=== PATIENT | female | born 1955 | race Caucasian/White ===

== ENCOUNTER → 2020-02-11 14:17 | Outpatient (CLI) | payer OTHER, SELFPAY ==
--- NOTE | 2020-02-11 | DI.RAD.S_ITS ---
PROCEDURE: XR CERVICAL SPINE 2V OR 3V INDICATIONS: NECK PAIN TECHNIQUE: 3 view(s) of the cervical spine were acquired. COMPARISON: None. FINDINGS: Bones: No fractures or dislocations to the T1 level. The lateral masses of C1 appear intact on the odontoid view. No suspicious bony lesions. Loss of lordosis which could be related to muscle spasm, rigidity or simply positional. Multilevel disc degeneration, most notably and moderate at the C5-C6 and C6-C7 levels. Mild multilevel facet joint arthropathy and uncovertebral hypertrophy. Soft tissues: No prevertebral soft tissue swelling. IMPRESSION: Loss of lordosis and multilevel spondylosis. Dictated by: Richard Lawson [facility] Interpreted: Derek Sandoval MD on 02/11/2020 at 16:36 Approved by: Derek Sandoval M.D. on 02/11/2020 at 17:13
== END ==
PROVIDERS: PCP Internal Medicine; Referring Provider Internal Medicine; Visit Provider Internal Medicine
DX: Z13.820 Encounter for screening for osteoporosis (principal); M54.2 Cervicalgia; M47.812 Spondylosis without myelopathy or radiculopathy, cervical region; Z87.891 Personal history of nicotine dependence
CPT/HCPCS: 72040; 77080

== ENCOUNTER → 2020-02-28 15:14 | Outpatient (CLI) | payer OTHER, SELFPAY ==
--- NOTE | 2020-02-28 15:15 | DI.RAD.S_ITS ---
PROCEDURE: XR WRIST RT MIN 3V INDICATIONS: wrist pain, FOOSH, medal wrist pain TECHNIQUE: 4 views of the wrist were acquired. COMPARISON: None. FINDINGS: Bones: No fracture. Scattered degenerative subchondral sclerosis and spurring. Soft tissues: No suspicious soft tissue calcifications. IMPRESSION: No fracture. If the patient's symptoms do not improve recommend followup radiographs in 10 days to assess for healing sclerosis/occult injury. Dictated by: Joseph Rios M.D. on 02/28/2020 at 15:42 Approved by: Joseph Rios M.D. on 02/28/2020 at 15:47
--- NOTE | 2020-02-28 15:15 | DI.RAD.S_ITS ---
PROCEDURE: XR FINGER RT MIN 2V INDICATIONS: wrist pain, FOOSH, medial wrist pain TECHNIQUE: AP hand, 2 views of the right finger(s) acquired. COMPARISON: None. FINDINGS: Bones: No fracture. Scattered degenerative subchondral sclerosis and spurring. Chronic corticated ossicle at the PIP joint of the right little finger. Soft tissues: No suspicious soft tissue calcifications. IMPRESSION: Degenerative changes. If the patient's pain or other symptoms persist, consider further evaluation with MRI Dictated by: Joseph Rios M.D. on 02/28/2020 at 15:40 Approved by: Joseph Rios M.D. on 02/28/2020 at 15:42
== END ==
PROVIDERS: PCP Internal Medicine; Referring Provider Nurse Practitioner; Visit Provider Nurse Practitioner
DX: M25.531 Pain in right wrist (principal)
CPT/HCPCS: 73110; 73140

== ENCOUNTER → 2020-07-17 12:09 | Outpatient (CLI) | payer OTHER, SELFPAY ==
--- NOTE | 2020-07-17 | DI.MRI.S_ITS ---
PROCEDURE: MR BRAIN (IAC) WWO CON INDICATIONS: Sensorineural hearing loss, bilateral TECHNIQUE: Noncontrast sagittal T1 spin echo, axial FLAIR, axial gradient echo, axial diffusion and ADC through the brain. Axial thin-slice 3D CISS, coronal TruFISP, axial T1 spin echo with fat saturation through the internal auditory canals. After the administration of contrast, thin slice axial and coronal T1 spin echo with fat saturation through the internal auditory canals, and axial T1 spin echo with fat saturation through the brain. COMPARISON: None. FINDINGS: Image quality: Excellent. Cerebellopontine angles: There is an intensely enhancing mass seen involving the right internal auditory canal, which extends into the right cerebellopontine angle cistern that measures 2 x 1.5 by 1.4 cm. No additional masses can be seen involving the internal auditory canals or the cerebellopontine angle cisterns. CSF spaces: Ventricles are normal in size and shape. No extra-axial fluid collections. Basal cisterns are patent. Brain: No intracranial bleeds or mass effects. Aguilar-white matter interface is intact. No abnormal intracranial enhancement. Diffusion weighted images demonstrate no acute ischemic insults. Brainstem appears normal. Normal intravascular flow voids are present. Brain parenchymal volume loss is seen. Chronic small vessel ischemic changes are seen. Skull and face: Calvarial marrow signal is normal. Orbits appear normal. Sinuses: Sinuses and mastoids are clear. IMPRESSION: There is a 2 cm intensely enhancing mass involving the right internal auditory canal, which extends into the right cerebellopontine angle cistern. 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 Dictated by: Coy Kwan M.D. on 07/17/2020 at 13:37 Approved by: Coy Kwan M.D. on 07/17/2020 at 13:39
== END ==
PROVIDERS: PCP Internal Medicine; Referring Provider Internal Medicine; Visit Provider Internal Medicine
DX: H90.3 Sensorineural hearing loss, bilateral (principal); D33.3 Benign neoplasm of cranial nerves
CPT/HCPCS: 70553

== ENCOUNTER → 2020-12-13 11:07 | Outpatient (CLI) | payer OTHER, SELFPAY ==
--- NOTE | 2020-12-13 | DI.MG.S_ITS ---
BILATERAL DIGITAL SCREENING MAMMOGRAM 3D/2D WITH CAD: 12/13/2020 CLINICAL: Routine screening. Comparison is made to exams dated: 10/19/2019 mammogram, 09/14/2018 mammogram, 06/19/2017 mammogram, and 12/01/2013 mammogram - outside. There are scattered fibroglandular elements in both breasts. Current study was also evaluated with a Computer Aided Detection (CAD) system. There are benign calcifications in both breasts. No significant masses, calcifications, or other findings are seen in either breast. There has been no significant interval change. IMPRESSION: BENIGN There is no mammographic evidence of malignancy. A 1 year screening mammogram is recommended. This exam was interpreted at Station ID: [id number]. NOTE: For mammograms, a report in lay terms will be sent to the patient. Approximately 15% of breast malignancies will not be visualized mammographically. In the management of a palpable breast mass, a negative mammogram must not discourage biopsy of a clinically suspicious lesion. Electronically Signed By: Kushal solis/david:12/13/2020 13:43:01 letter sent: Normal Exam ACR BI-RADS Category 2: Benign Finding(s) 3342F
== END ==
PROVIDERS: PCP Student in an Organized Health Care Education/Training Program; Referring Provider Internal Medicine; Visit Provider Internal Medicine
DX: Z12.31 Encounter for screening mammogram for malignant neoplasm of breast (principal)
CPT/HCPCS: 77063; 77067

== ENCOUNTER → 2021-12-14 10:50 | Outpatient (CLI) | payer OTHER, SELFPAY ==
--- NOTE | 2021-12-14 10:53 | DI.MG.S_ITS ---
BILATERAL DIGITAL SCREENING MAMMOGRAM 3D/2D WITH CAD: 12/14/2021 CLINICAL: Routine screening. Comparison is made to exams dated: 12/13/2020 mammogram - [facility], 10/19/2019 mammogram, and 09/14/2018 mammogram - outside. There are scattered areas of fibroglandular density in both breasts (category b / 25%-50% glandular tissue). Current study was also evaluated with a Computer Aided Detection (CAD) system. There are benign calcifications in both breasts. No significant masses, calcifications, or other findings are seen in either breast. There has been no significant interval change. IMPRESSION: BENIGN There is no mammographic evidence of malignancy. A 1 year screening mammogram is recommended. Based on the Tyrer Cuzick model (a risk assessment model) the patient's lifetime risk is 8.5% and her 10 year risk is 3.9%. According to the ACR, ACS, and NCCN guidelines, an annual breast MRI exam along with mammogram is recommended if the patient's lifetime risk is 20% or greater. This exam was interpreted at Station ID: [id number]. NOTE: For mammograms, a report in lay terms will be sent to the patient. Approximately 15% of breast malignancies will not be visualized mammographically. In the management of a palpable breast mass, a negative mammogram must not discourage biopsy of a clinically suspicious lesion. Electronically Signed By: Robbin flores/david:12/14/2021 13:14:24 letter sent: Normal Exam ACR BI-RADS Category 2: Benign Finding(s) 3342F
== END ==
PROVIDERS: PCP Student in an Organized Health Care Education/Training Program; Referring Provider Student in an Organized Health Care Education/Training Program; Visit Provider Student in an Organized Health Care Education/Training Program
DX: Z12.31 Encounter for screening mammogram for malignant neoplasm of breast (principal)
CPT/HCPCS: 77063; 77067

== ENCOUNTER 2022-06-18 13:39 | Emergency (ER) | payer OTHER, SELFPAY ==
[2022-06-18 13:45] VITALS: BP 130/59; PULSE 69; RESP 18; TEMP 36.3; O2SAT 99; BMI 25.0
--- NOTE | 2022-06-18 13:58 | DI.RAD.S_ITS ---
PROCEDURE: XR CHEST 1V INDICATIONS: chest pain TECHNIQUE: One view of the chest was acquired. COMPARISON: [facility], CT, CT HEAD/BRAIN WO CON, 06/18/2022, 14:11. FINDINGS: Surgical changes and devices: None. Lungs and pleura: Lungs are clear. No pleural effusions or pneumothorax. Mediastinum: Mediastinal contours appear normal. Heart size is normal. Bones and chest wall: No suspicious bony lesions. Overlying soft tissues appear unremarkable. IMPRESSION: Normal portable chest for age. Dictated by: Coy Kwan M.D. on 06/18/2022 at 13:35 Approved by: Coy Kwan M.D. on 06/18/2022 at 13:35
--- NOTE | 2022-06-18 13:59 | DI.CT.S_ITS ---
PROCEDURE: CT HEAD/BRAIN WO CON INDICATIONS: dizzy x 2 days. TECHNIQUE: Noncontrast 4.5 mm thick angled axial sections acquired from the foramen magnum to the vertex, with coronal and sagittal reformats. For radiation dose reduction, the following was used: automated exposure control, adjustment of mA and/or kV according to patient size. COMPARISON: [facility], CR, XR CHEST 1V, 06/18/2022, 14:05. Brain MRI, 07/17/2020. FINDINGS: Image quality: Excellent. CSF spaces: Basal cisterns are patent. No extra-axial fluid collections. The ventricles are symmetric in size and shape. Brain: No intracranial bleeds or masses. There is cerebral volume loss for age, with resultant ventricular and sulcal prominence. There are periventricular and deep white matter chronic small vessel ischemic changes. There is intracranial internal carotid artery atherosclerosis. Skull and face: Calvarium and visualized facial bones appear intact, without suspicious lesions. Sinuses: Visualized sinuses and mastoids are clear. IMPRESSION: Unremarkable noncontrast head CT for age, without a cause of the patient's presenting history identified. Dictated by: Coy Kwan M.D. on 06/18/2022 at 13:29 Approved by: Coy Kwan M.D. on 06/18/2022 at 13:29
[2022-06-18 14:22] LABS: Add Manual Diff / Slide Review NO; Basophils Absolute Auto 100 /uL (0-100); Eosinophils Absolute Auto 100 /uL (0-450); Eosinophils Percent Auto 0.8 % (2-4); Hematocrit 41.9 % (36-46); Hemoglobin 13.8 g/dL (12.0-16.0); Lymphocytes Absolute Auto 1800 /uL (1100-4500); Lymphocytes Percent Auto 27.4 % (25-40); Mean Corpuscular Hemoglobin 27.2 PG (26-34); Mean Corpuscular Volume 82.3 fL (80-100); Monocytes Absolute Auto 600 /uL (0-900); Monocytes Percent Auto 8.8 % (3-14); Neutrophils Absolute Auto 4100 /uL (1500-7000); Platelet Count 293 X10^3/uL (150-400); Red Blood Cell Count 5.09 X10^6/uL (4.0-5.2); Red Cell Distribution Width 14.3 % (11.6-14.8); White Blood Cell Count 6.6 X10^3/uL (4.5-11.0)
[2022-06-18] MEDS: SODIUM CHLORIDE 0.9% 1,000 ML 1000 ML IV (14:22)
[2022-06-18] MEDS: MECLIZINE HCL 12.5 MG TABLET 50 MG PO (14:22)
[2022-06-18] MEDS: diazePAM 10 MG/2 ML SYRINGE 2 MG IV (14:23)
[2022-06-18 14:29] LABS: Prothrombin Time 11.4 SECONDS (10.1-12.7)
[2022-06-18 14:31] LABS: Alanine Aminotransferase 22 IU/L (<35); Albumin 4.3 g/dL (3.5-5.0); Albumin Globulin Ratio 1.2 (1.0-2.8); Alkaline Phosphatase 67 U/L (38-126); Aspartate Aminotransferase 26 IU/L (14-36); BUN Creatinine Ratio 22.9 (6-22); Bilirubin Total 0.4 mg/dL (0.2-1.3); Blood Urea Nitrogen 16 mg/dL (7-17); Calcium 9.2 mg/dL (8.4-10.2); Carbon Dioxide 29 mmol/L (22-32); Chloride 100 mmol/L (98-107); Creatine Kinase 62 U/L (30-135); Estimated Glomerular Filt Rate > 60 mL/min (>60); Globulin 3.5 g/dL (1.7-4.1); Glucose 110 mg/dL (80-110); HEMOLYSIS < 15 (0-50); Lipase 176 U/L (23-300); Magnesium 2.2 mg/dL (1.6-2.3); PTT Partial Thromboplastin Tim 33 SECONDS (26-36); Potassium 3.9 mmol/L (3.4-5.1); Sodium 137 mmol/L (137-145); Total Protein 7.8 g/dL (6.3-8.2)
[2022-06-18 14:43] LABS: Troponin I < 0.012 ng/mL (0.01-0.034)
[2022-06-18 15:25] VITALS: PULSE 52; RESP 18; O2SAT 99
[2022-06-18 15:30] VITALS: BP 115/56; PULSE 54; RESP 17; O2SAT 98
[2022-06-18 16:00] VITALS: BP 107/59; PULSE 64; RESP 17; O2SAT 97
--- NOTE | 2022-06-18 16:42 | ED_ITS ---
HPI - Dizziness General Chief Complaint: Dizziness Stated Complaint: sent by [facility] potential stroke Time Seen by Provider: 06/18/22 14:17 Source: patient Mode of arrival: Ambulatory History of Present Illness HPI Narrative: 67-year-old female former smoker with history of an acoustic schwannoma had originally presented to the walk-in clinic for evaluation of dizziness, lightheaded and nausea for the past 3 days. She states that when she moves it seems to exacerbate her symptoms. She states that it makes her a bit dizzy with ambulation but largely denies other symptoms. Specifically she denies blurred vision or trouble with speech. She has no numbness, tingling or weakness of her extremities. She denies any fever, takes no blood thinners and denies any traumatic injury. She denies any upper respiratory symptoms such as runny nose, sore throat or cough. She and her did just fly back from [facility] and on 1 of the descent she felt pain and fullness in her right ear. Previously when she was symptomatic from her acoustic neuroma it was with ear pain and loss of hearing. She was scheduled to have a surgical intervention about 1 year ago but after obtaining a 2nd opinion she elected to hold off. She denies chest pain, palpitations or shortness of breath. She denies new medications or dietary change. Related Data Previous Rx's Medication Instructions Recorded meclizine 25 mg tablet 25 mg PO BID-TID PRN dizziness #14 06/18/22 tabs ondansetron 4 mg disintegrating 4 mg PO TID-QID PRN nausea and 06/18/22 tablet vomiting #10 tabs Allergies Allergy/AdvReac Type Severity Reaction Status Date / Time No Known Drug Allergies Allergy Verified 06/18/22 13:50 Review of Systems Review of Systems Narrative: GENERAL: Denies chills, fatigue, malaise, fever, sweats. HEENT: See HPI RESPIRATORY: Denies dyspnea, cough, wheezing, hemoptysis, sputum. CARDIOVASCULAR: Denies chest pain, palpitations, orthopnea, edema, GASTROINTESTINAL: Denies nausea, vomiting, abdominal pain, diarrhea, constipation, melena. : Denies dysuria, frequency, incontinence, hematuria, urinary retention. MUSCULOSKELETAL: denies weakness, joint pain, or bony pain SKIN: Denies rash, skin lesions, or other NEUROLOGIC: See HPI PSYCHIATRIC: No concerning psychosocial issues. 12 point review of systems is negative except for those stated above Patient History Medical History No significant medical problems Social History Smoking Status: Former smoker Smoking Status: Former smoker alcohol intake frequency: 0-2 drinks per day Substance Use Type: does not use Exam Narrative Exam Narrative: GENERAL: [67] year old patient appears stated age. Well-developed patient, in mild distress. HEAD: Atraumatic. Normocephalic. EYES: Pupils equal round and reactive. Extraocular motions intact. No scleral icterus. No injection or drainage. Evette Hallpike elicits very subtle lateral nystagmus with fast twitch to the right. Patient does not notice this symptomatically ENT: Nose without bleeding, purulent drainage. Throat without erythema, tonsillar hypertrophy or exudate. Airway patent. NECK: Trachea midline. Non tender CARDIOVASCULAR: Regular rate and rhythm without murmurs, gallops, or rubs. RESPIRATORY: Clear to auscultation. Breath sounds equal bilaterally. No wheezes, rales, or rhonchi. GASTROINTESTINAL: Abdomen soft, non-tender, nondistended. EXTREMITIES: No edema or joint tenderness. BACK: Nontender without deformity or crepitance. No flank tenderness. NEURO: AOx3. SKIN: No rash or erythema of visible areas NIH Stroke Scale 1a. LOC: Patient is alert and keenly responsive (0) 1b. LOC Questions: Patient answers both LOC questions accurately (0) 1c. LOC Commands: Patient performs both tasks correctly (0) 2. Best Gaze: Normal (0) 3. Visual: No visual loss (0) 4. Facial palsy: Normal symmetrical movements (0) 5. Motor arm: No drift (0) 6. Motor leg: No drift (0) 7. Limb ataxia: Absent (0) 8. Sensory: Normal (0) 9. Best language: No aphasia; normal (0) 10. Dysarthria: Normal (0) 11. Extinction and inattention: No abnormality (0) NIHSS: 0 Initial Vital Signs Initial Vital Signs: Vital Signs Temperature 97.4 F L 06/18/22 13:45 Pulse Rate 69 06/18/22 13:45 Respiratory Rate 18 06/18/22 13:45 Blood Pressure 130/59 L 06/18/22 13:45 Pulse Oximetry 99 06/18/22 13:45 Oxygen Delivery Method Room Air 06/18/22 13:45 Course Orders Ordered: Discontinued Medications Diazepam (Diazepam 10 Mg/2 Ml Syringe) 2 mg IV NOW ONE Stop: 06/18/22 14:17 Last Admin: 06/18/22 14:23 Dose: 2 mg Documented By: AMU Sodium Chloride (Normal Saline 0.9%) 1,000 mls @ 1,000 mls/hr IV BOLUS ONE Stop: 06/18/22 14:59 Last Infusion: 06/18/22 15:30 Dose: 0 mls/hr Documented By: Admin: 06/18/22 14:22 Dose: 1,000 mls/hr Documented By: AMU Meclizine HCl (Meclizine Hcl 12.5 Mg Tablet) 50 mg PO NOW ONE Stop: 06/18/22 14:17 Last Admin: 06/18/22 14:22 Dose: 50 mg Documented By: LETA Reevaluation(s) Reevaluation #1: Patient with complete resolution of symptoms after above-stated therapies Consultations Consultation #1: discussed with internal control consultant neuro at . No need for any immediate intervention even if symptoms from neuroma. Reasurring given response to meclizine, valium Vital Signs Vital signs: Vital Signs - 8 hr 06/18/22 13:45 Temperature 97.4 F L Pulse Rate 69 Respiratory Rate 18 Blood Pressure 130/59 L Pulse Oximetry 99 Oxygen Delivery Method Room Air MDM - Dizziness Lab Data 06/18/22 14:08 06/18/22 14:08 Labs: Lab Results 06/18/22 06/18/22 06/18/22 Range/Units 14:08 14:08 14:08 WBC 6.6 (4.5-11.0) X10^3/uL RBC 5.09 (4.0-5.2) X10^6/uL Hgb 13.8 (12.0-16.0) g/dL Hct 41.9 (36-46) % MCV 82.3 (80-100) fL MCH 27.2 (26-34) PG MCHC 33.0 (30-36) % RDW 14.3 (11.6-14.8) % Plt Count 293 (150-400) X10^3/uL Neut % (Auto) 62.0 (50-75) % Lymph % (Auto) 27.4 (25-40) % Horry % (Auto) 8.8 (3-14) % Eos % (Auto) 0.8 L (2-4) % Baso % (Auto) 1.0 (0-2) % Neut # (Auto) 4100 (7970-5879) /uL Lymph # (Auto) 1800 (2807-1278) /uL Horry # (Auto) 600 (0-900) /uL Eos # (Auto) 100 (0-450) /uL Baso # (Auto) 100 (0-100) /uL PT 11.4 (10.1-12.7) SECONDS INR 1.0 (0.9-1.3) APTT 33 (26-36) SECONDS Sodium 137 (137-145) mmol/L Potassium 3.9 (3.4-5.1) mmol/L Chloride 100 (98-107) mmol/L Carbon Dioxide 29 (22-32) mmol/L BUN 16 (7-17) mg/dL Creatinine 0.70 (0.52-1.04) mg/dL Estimated GFR > 60 (>60) mL/min BUN/Creatinine Ratio 22.9 H (6-22) Glucose 110 (80-110) mg/dL Calcium 9.2 (8.4-10.2) mg/dL Magnesium 2.2 (1.6-2.3) mg/dL Total Bilirubin 0.4 (0.2-1.3) mg/dL AST 26 (14-36) IU/L ALT 22 (<35) IU/L Alkaline Phosphatase 67 (38-126) U/L Total Creatine Kinase 62 (30-135) U/L CK-MB (CK-2) TNP CK-MB (CK-2) Rel Index TNP Troponin I < 0.012 (0.01-0.034) ng/mL Total Protein 7.8 (6.3-8.2) g/dL Albumin 4.3 (3.5-5.0) g/dL Globulin 3.5 (1.7-4.1) g/dL Albumin/Globulin Ratio 1.2 (1.0-2.8) Lipase 176 (23-300) U/L MDM Narrative Medical decision making narrative: CC: 67-year-old female with dizziness and known acoustic schwannoma Complicating co-morbidities: Age, known acoustic schwannoma Data collected from: Patient Medical records reviewed: Prior notes reviewed in our EMR Differential considered, but not limited to: Peripheral vertigo, effects of schwannoma, posterior circulation stroke, electrolyte abnormality versus other Exam documented above, pertinent findings include: Heart rate regular, lungs cl ear, no obvious ENT findings. Subtle R lateral nystagmus. Gone with tx. Normal NIHSS Lab Test results independently reviewed as above. Pertinent findings: No significant abnormal findings requiring immediate intervention Independently reviewed EKG as above Imaging studies independently reviewed: CT without remarkable findings Scores Used: NIHSS Consultations: Neuro, see above Treatments: Valium, Meclizine, fluids Re-evaluations: complete resolution Discussion::? Patient with known acoustic neuroma presents at the request from the walk-in clinic.? Patient's dizziness is reproducible and associated with some nystagmus.? She has no high-risk features such as fever, use of blood thi nners, trauma or other neurologic symptoms.? Labs, imaging and response to therapies are very reassuring.? We did discuss at length the low likelihood of a posterior circulation stroke or symptoms being related to her acoustic neuroma.? In both cases there is no indication for immediate intervention, if this were a posterior circulation stroke she is well outside of any time frame for intervention.? Furthermore it seems unlikely, this opinion is shared by Neurology that these diagnoses are the cause given her resolution of symptoms with above-stated medications.? That being said, we discussed the potential of hospitalization for further workup versus discharge and patient would prefer to go home and follow-up.? She understands return precautions that would prompt a return Disposition: see below, along with detailed discharge instructions that have been reviewed with patient as well as indications for ED re-evaluation and additional outpatient follow up Discharge Plan Departure Patient Disposition: Home Clinical Impression: Episodic peripheral vertigo Instructions: DI for Vertigo Activity Restrictions/Additional Instructions: *You have been diagnosed with [dizziness, likely peripheral vertigo. As we discussed your history and physical exam as well as labs and imaging would suggest a likely cause being peripheral vertigo. Your labs, response to therapies and imaging are reassuring.] *What to do: *Please continue to take your regular medications as directed. [x ] New medication prescriptions sent to your pharmacy: [[facility] ] [ ] New medication written as a paper prescription [ ] No new medications given *Please follow up with your primary care provider in 2-3 days, call for an appointment. Let them know you were seen in the Emergency Department and that we ask that you be seen in follow up. We will electronically transmit a record of today's note if your PCP is in our system *If you do not have a primary care provider please contact the [facility] Resource line at [phone]. They will ask some questions about your medical history and help get you set up with a doctor in the community. *Return to Emergency Department if you should have any new, worsening or concerning symptoms, such as [fever greater than 101 F, shaking chills, worsening pain, persistent vomiting or other bothersome symptoms] Prescriptions: New meclizine 25 mg tablet 25 mg PO BID-TID PRN (Reason: dizziness) Qty: 14 0RF ondansetron 4 mg tablet,disintegrating 4 mg PO TID-QID PRN (Reason: nausea and vomiting) Qty: 10 0RF Referrals: Sara Randolph PA-C [Primary Care Provider] - Stand Alone Forms: Patient Portal/API
== END 2022-06-18 17:21 | disposition home or self-care (01) ==
PROVIDERS: Emergency Provider Emergency Medicine; PCP Student in an Organized Health Care Education/Training Program
DX: H81.391 Other peripheral vertigo, right ear (principal); R11.0 Nausea; R07.9 Chest pain, unspecified
CPT/HCPCS: 36415; 70450; 71045; 80053; 82550; 83690; 83735; 84484; 85025; 85610; 85730; 93005; 96361; 96374; 99284; J3360

== ENCOUNTER → 2022-08-02 10:46 | Outpatient (CLI) | payer OTHER, SELFPAY ==
--- NOTE | 2022-08-02 | DI.MRI.S_ITS ---
PROCEDURE: MR HEAD/BRAIN WO/W CON INDICATIONS: Benign neoplasm of cranial nerves TECHNIQUE: Noncontrast axial T1 spin echo, axial T2 fast spin echo, sagittal and axial FLAIR, coronal T2 fast spin echo, axial gradient echo, axial diffusion and ADC through the brain. After the administration of contrast, axial and coronal and sagittal T1 spin echo with fat saturation through the brain. COMPARISON: [facility], MR, MR BRAIN (IAC) WWO CON, 07/17/2020, 12:11. [facility], CT, CT HEAD/BRAIN WO CON, 06/18/2022, 14:11. FINDINGS: Image quality: Diagnostic. CSF spaces: There is again seen a mass centered within the right internal auditory canal and extending into the right cerebellopontine angle cistern. This mass demonstrates relatively prominent, mildly heterogeneous enhancement. This mass measures 17 mm transversely by 13 mm AP, with a craniocaudal extent of 12 mm. Previously, this measured 20 x 15 x 14 mm when measured in a similar fashion. Brain: No midline shift. No intracranial bleeds or masses. No abnormal intracranial enhancement. There is cerebral volume loss for age. There is periventricular white matter chronic small vessel ischemic change. The brainstem appears normal. Diffusion-weighted images demonstrate no acute ischemic insults. No chronic ischemic insults. Normal intravascular flow voids are present. Skull and face: Calvarial marrow is normal in signal. Orbits appear normal. Sinuses: Sinuses and mastoids appear clear. IMPRESSION: Minimal decrease in size the known right internal auditory canal mass, which represents a vestibular schwannoma until proven otherwise. Dictated by: Coy Kwan M.D. on 08/02/2022 at 11:25 Approved by: Coy Kwan M.D. on 08/02/2022 at 11:28
== END ==
PROVIDERS: PCP Student in an Organized Health Care Education/Training Program; Referring Provider Nurse Practitioner Family; Visit Provider Nurse Practitioner Family
DX: D33.3 Benign neoplasm of cranial nerves (principal)
CPT/HCPCS: 70553

== ENCOUNTER → 2023-02-12 17:07 | Outpatient (CLI) | payer OTHER, SELFPAY ==
--- NOTE | 2023-02-12 | DI.MG.S_ITS ---
BILATERAL DIGITAL SCREENING MAMMOGRAM 3D/2D WITH CAD: 02/12/2023 CLINICAL: Routine screening. Comparison is made to exams dated: 12/14/2021 mammogram - , 10/19/2019 mammogram - outside, and 12/13/2020 mammogram - . There are scattered areas of fibroglandular density in both breasts (category b / 25%-50% glandular tissue). Current study was also evaluated with a Computer Aided Detection (CAD) system. No significant masses, calcifications, or other findings are seen in either breast. IMPRESSION: NEGATIVE There is no mammographic evidence of malignancy. A 1 year screening mammogram is recommended. Based on the Tyrer Cuzick model (a risk assessment model) the patient's lifetime risk is 7.8% and her 10 year risk is 3.9%. According to the ACR, ACS, and NCCN guidelines, an annual breast MRI exam along with mammogram is recommended if the patient's lifetime risk is 20% or greater. This exam was interpreted at Station ID: [id number]. NOTE: For mammograms, a report in lay terms will be sent to the patient. Approximately 15% of breast malignancies will not be visualized mammographically. In the management of a palpable breast mass, a negative mammogram must not discourage biopsy of a clinically suspicious lesion. Electronically Signed By: Alyx Triplett M.D., PH.D sparkle/david:02/14/2023 01:02:56 copy to: DEVYN WYMAN letter sent: Normal Exam ACR BI-RADS Category 1: Negative [id number]
== END ==
PROVIDERS: PCP Student in an Organized Health Care Education/Training Program; Referring Provider Student in an Organized Health Care Education/Training Program; Visit Provider Student in an Organized Health Care Education/Training Program
DX: Z12.31 Encounter for screening mammogram for malignant neoplasm of breast (principal)
CPT/HCPCS: 77063; 77067

== ENCOUNTER → 2023-07-30 13:53 | Outpatient (CLI) | payer MEDICARE, SELFPAY ==
--- NOTE | 2023-07-30 13:55 | DI.MRI.S_ITS ---
PROCEDURE: MR BRAIN (IAC) WWO CON INDICATIONS: VESTIBULAR SCHWANNOMA TECHNIQUE: Noncontrast sagittal T1 spin echo, axial FLAIR, axial gradient echo, axial diffusion and ADC through the brain. Axial thin-slice 3D CISS, coronal TruFISP, axial T1 spin echo with fat saturation through the internal auditory canals. After the administration of contrast, thin slice axial and coronal T1 spin echo with fat saturation through the internal auditory canals, and axial and coronal and sagittal T1 spin echo with fat saturation through the brain. COMPARISON: [facility], MR, MR HEAD/BRAIN WO/W CON, 08/02/2022, 11:01. [facility], MR, MR BRAIN (IAC) WWO CON, 07/17/2020, 12:11. FINDINGS: Image quality: Excellent. Cerebellopontine angles: Minimally decreased size of enhancing lesion within the right cerebellopontine angle extending into the IAC measuring approximately 1.6 x 1.3 x 1.1 centimeters (TV by AP by cc), previously 1.7 x 1.4 x 1.2 centimeters. The left IAC is within normal limits. CSF spaces: Ventricles are normal in size and shape. No extra-axial fluid collections. Basal cisterns are patent. Brain: No intracranial bleeds or mass effects. Age-related global volume loss and chronic microvascular ischemic changes are present. Aguilar-white matter interface is intact. No abnormal intracranial enhancement. Diffusion weighted images demonstrate no acute ischemic insults. Brainstem appears normal. Normal intravascular flow voids are present. Skull and face: Calvarial marrow signal is normal. Orbits appear normal. Sinuses: Sinuses and mastoids are clear. IMPRESSION: Minimally decreased size of known right IAC mass, most consistent with a vestibular schwannoma. Dictated by: Charanjit Thompson M.D. on 07/30/2023 at 17:36 Approved by: Charanjit Thompson M.D. on 07/30/2023 at 17:40
== END ==
PROVIDERS: PCP Student in an Organized Health Care Education/Training Program; Referring Provider Student in an Organized Health Care Education/Training Program; Visit Provider Student in an Organized Health Care Education/Training Program
DX: D33.3 Benign neoplasm of cranial nerves (principal)
CPT/HCPCS: 70553; A9579

== ENCOUNTER → 2023-09-30 11:02 | Outpatient (CLI) | payer MEDICARE, SELFPAY ==
--- NOTE | 2023-09-30 11:05 | DI.RAD.S_ITS ---
PROCEDURE: XR CERVICAL SPINE 2V OR 3V INDICATIONS: BACK PAIN TECHNIQUE: 3 view(s) of the cervical spine were acquired. COMPARISON: [facility], CR, XR CERVICAL SPINE 2V OR 3V, 02/11/2020, 14:31. FINDINGS: Bones: No fractures or dislocations to the T1 level. The lateral masses of C1 appear intact on the odontoid view. No suspicious bony lesions. Vertebral body height is maintained. Degenerative disc disease present lower lumbar spine particularly at C5 5 6 and C6-7. Osteophytes noted anteriorly at C6-7. Facet arthropathy is noted throughout. Soft tissues: No prevertebral soft tissue swelling. Compared to prior study, no significant interval change. IMPRESSION: No displaced fracture or traumatic subluxation. Multilevel cervical spondylosis. Dictated by: Maurice Schultz M.D. on 09/30/2023 at 11:58 Approved by: Maurice Schultz M.D. on 09/30/2023 at 12:03
== END ==
PROVIDERS: PCP Student in an Organized Health Care Education/Training Program; Referring Provider Student in an Organized Health Care Education/Training Program; Visit Provider Student in an Organized Health Care Education/Training Program
DX: M47.812 Spondylosis without myelopathy or radiculopathy, cervical region (principal); M54.2 Cervicalgia; G89.29 Other chronic pain
CPT/HCPCS: 72040

== ENCOUNTER → 2024-02-13 10:05 | Outpatient (CLI) | payer MEDICARE, SELFPAY ==
--- NOTE | 2024-02-13 | DI.MG.S_ITS ---
BILATERAL DIGITAL SCREENING MAMMOGRAM 3D/2D WITH CAD: 02/13/2024 CLINICAL: Routine screening. Comparison is made to exams dated: 02/12/2023 mammogram, 12/14/2021 mammogram, and 12/13/2020 mammogram - [facility]. There are scattered areas of fibroglandular density (category b / 25%-50% glandular tissue). Current study was also evaluated with a Computer Aided Detection (CAD) system. No significant masses, calcifications, or other findings are seen in either breast. There has been no significant interval change. IMPRESSION: NEGATIVE There is no mammographic evidence of malignancy. A 1 year screening mammogram is recommended. Based on the Tyrer Cuzick model (a risk assessment model) the patient's lifetime risk is 7.4% and her 10 year risk is 3.9%. According to the ACR, ACS, and NCCN guidelines, an annual breast MRI exam along with mammogram is recommended if the patient's lifetime risk is 20% or greater. This exam was interpreted at Station ID: [id number]. NOTE: For mammograms, a report in lay terms will be sent to the patient. Approximately 15% of breast malignancies will not be visualized mammographically. In the management of a palpable breast mass, a negative mammogram must not discourage biopsy of a clinically suspicious lesion. Electronically Signed By: Robbin flores/david:02/13/2024 12:28:12 copy to: DEVYN WYMAN letter sent: Normal Exam ACR BI-RADS Category 1: Negative
== END ==
PROVIDERS: PCP Student in an Organized Health Care Education/Training Program; Referring Provider Student in an Organized Health Care Education/Training Program; Visit Provider Student in an Organized Health Care Education/Training Program
DX: Z12.31 Encounter for screening mammogram for malignant neoplasm of breast (principal)
CPT/HCPCS: 77063; 77067

== ENCOUNTER → 2025-02-09 15:45 | Outpatient (CLI) | payer MEDICARE, SELFPAY ==
--- NOTE | 2025-02-09 15:49 | DI.MG.S_ITS ---
MM screening mammo BI: 02/09/2025. BI-RADS: 1 CLINICAL: 70-year old female for bilateral screening mammogram. Tyrer-Cuzick lifetime risk of 4.8%. No personal or first-degree family history of breast cancer. PRIOR EXAMS 02/13/2024, 02/12/2023, 12/14/2021, 12/13/2020. MAMMOGRAPHY TECHNIQUE: 2D and 3D (tomosynthesis) digital mammographic views obtained, with additional images as needed for full coverage. Current study was also evaluated with a Computer Aided Detection (CAD) system. DENSITY B. There are scattered areas of fibroglandular density. MAMMOGRAPHY FINDINGS Bilateral: No suspicious mass, asymmetry, microcalcification, or other abnormality seen. IMPRESSION: * No evidence of malignancy. RECOMMENDATIONS Bilateral * Annual screening mammography. OVERALL ASSESSMENT CATEGORY BI-RADS-1: Negative. The [employer] recommends annual screening mammography beginning at age 40 for women with average risk of breast cancer. ELECTRONICALLY SIGNED: Zion Snow M.D. on 02/10/2025 at 01:09:09 PM PT Interpreting Station ID: [id number]
== END ==
LOC: MAMMO 15:48
PROVIDERS: PCP Student in an Organized Health Care Education/Training Program; Referring Provider Student in an Organized Health Care Education/Training Program; Visit Provider Student in an Organized Health Care Education/Training Program
DX: Z12.31 Encounter for screening mammogram for malignant neoplasm of breast (principal)
CPT/HCPCS: 77063; 77067

== ENCOUNTER → 2025-02-10 14:02 | Outpatient (CLI) | payer MEDICARE, SELFPAY ==
--- NOTE | 2025-02-10 14:03 | DI.RAD.S_ITS ---
PROCEDURE: XR DEXA AXIAL SKELETON INDICATIONS: screenings COMPARISON: [facility], CR, XR DEXA AXIAL SKELETON, 02/11/2020, 14:44. FINDINGS: Lumbar Spine: Bone mineral density 1.136 g/cm2, T score 0.8. There is interval 0.5% increase in total lumbar spine bone mineral density. Left Femoral Neck: Bone mineral density 0.853 g/cm2, T score 0.0. There is interval 4.6% increase in left femoral neck bone mineral density. Left Hip: Bone mineral density 0.989 g/cm2, T score 0.4. There is interval 4.4% increase in left total hip bone mineral density. Fracture Risk Calculation (when applicable): 10-year fracture risk of a major osteoporotic fracture 6.9 percent and of a hip fracture 0.3 percent. (T score greater or equal to -1.0 to: NORMAL) (T score from -1.1 to -2.4: OSTEOPENIA) (T score less than or equal to -2.5: OSTEOPOROSIS) IMPRESSION: Normal bone mineral density. Follow-up guidelines as follows: Osteoporosis: Consider a repeat DEXA and Vertebral Fracture Assessment (VFA) exam in 2 years or sooner if medically necessary, to reassess this patient's status. Osteopenia: Consider a repeat DEXA in 2-3 years to reassess this patient's status, or if there is a new clinical indication. Normal: Consider a repeat DEXA in 5 years or sooner, or if there is a new clinical indication. All treatment decisions require clinical judgment and consideration of individual patient factors, including patient preferences, comorbidities, previous drug use, risk factors not captured in the FRAX model (e.g., frailty, falls, vitamin D deficiency, increased bone turnover, interval significant decline in bone density ) and possible under- or over-estimation of fracture risk by FRAX. In addition, the NOF Guide recommends that FDA-approved medical therapies be considered in postmenopausal women and men age >= 50 years with a: * Hip or vertebral (clinical or morphometric) fracture * T-score of <=-2.5 at the spine or hip * Ten-year fracture probability by FRAX of >= 3% for hip fracture or >=20% for major osteoporotic fracture. Dictated by: Eber Bradley M.D. on 02/10/2025 at 15:55 Approved by: Eber Bradley M.D. on 02/10/2025 at 15:56
== END ==
PROVIDERS: PCP Student in an Organized Health Care Education/Training Program; Referring Provider Student in an Organized Health Care Education/Training Program; Visit Provider Student in an Organized Health Care Education/Training Program
DX: Z13.820 Encounter for screening for osteoporosis (principal); Z78.0 Asymptomatic menopausal state
CPT/HCPCS: 77080